=== PATIENT | male | born 1980 | race Caucasian/White ===

== ENCOUNTER 2017-01-20 09:05 | Outpatient (RCR) | payer OTHER ==
[~2017-01-20 09:05] MED LIST: AMITRIPTYLINE H10 M1 PO; FLEXERIL 1010 MG/TAB PO; GLUCOPHAGE500 MG/TAB PO; LANTUS SOLOS100 U/ML SQ; NORCO 325 MG-51 TAB PO; ULTRAM 50MG TAB50 MG PO
== END 2017-04-20 ==
LOC: WSOH
DX: S63.112A Subluxation of metacarpophalangeal joint of left thumb, initial encounter (principal); S63.418A Traumatic rupture of collateral ligament of other finger at metacarpophalangeal and interphalangeal joint, initial encounter; W37.8XXA Explosion and rupture of other pressurized tire, pipe or hose, initial encounter; Y99.0 Civilian activity done for income or pay